=== PATIENT | female | born 1945 | race Caucasian/White ===

== ENCOUNTER → 2016-11-03 | Outpatient (CLI) | payer MEDICARE, BC | END | disposition home or self-care (01) | LOC: PCVCCLINIC 14:28 | PROVIDERS: ATTEND Internal Medicine | DX: R94.31 Abnormal electrocardiogram [ECG] [EKG] (principal); I10 Essential (primary) hypertension; E78.5 Hyperlipidemia, unspecified; J44.9 Chronic obstructive pulmonary disease, unspecified; F17.200 Nicotine dependence, unspecified, uncomplicated; Z82.49 Family history of ischemic heart disease and other diseases of the circulatory system | CPT/HCPCS: 80061; 93005; G0463 ==

== ENCOUNTER → 2017-05-17 | Outpatient (CLI) | payer MEDICARE, BC | END | disposition home or self-care (01) | LOC: PCVCCLINIC 13:12 | PROVIDERS: ATTEND Internal Medicine | DX: I10 Essential (primary) hypertension (principal); R94.31 Abnormal electrocardiogram [ECG] [EKG]; E78.5 Hyperlipidemia, unspecified; J43.2 Centrilobular emphysema; E03.9 Hypothyroidism, unspecified; Z82.49 Family history of ischemic heart disease and other diseases of the circulatory system; Z87.891 Personal history of nicotine dependence; Z88.8 Allergy status to other drugs, medicaments and biological substances | CPT/HCPCS: 80061; G0463 ==

== ENCOUNTER → 2017-05-29 | Outpatient (CLI) | payer MEDICARE, BC ==
--- NOTE | 2017-05-29 09:29 | PCVCIMAG ---
APPROVED REPORT Study performed: 05/29/2017 07:59:59 EXAM: Comprehensive 2D, Doppler, and color-flow Echocardiogram Patient Location: Echo lab Status: routine BSA: 1.81 HR: 54 bpmBP: 122/72 mmHg Rhythm: Bradycardia Other Information Study Quality: Good Risk Factors: Cardiac Risk Factors: HTN Indications Abnormal ECG Chest Pain 2D Dimensions LVEF(%): 56.03 (>50%) IVSd: 11.35 (7-11mm) LVDd: 41.72 mm PWd: 11.30 (7-11mm) LVDs: 29.65 (25-40mm) Left Atrium: 41.70 (27-40mm) Aortic Root: 32.14 mm LV Single Plane 4CH: 68.05 % LV Single Plane 2CH: 69.15 %Bridges's LVEF: 68.60 % Biplane EF: 69.8 % Volumes Left Atrial Volume (Systole) Single Plane 4CH: 82.57 mLSingle Plane 2CH: 70.23 mL LA ESV Index: 42.00 mL/m2 Aortic Valve AoV Peak [place].: 1.46 m/s AO Peak Gr.: 8.53 mmHgLVOT Max P.82 mmHg LVOT Max V: 1.21 m/s AI Vmax: 5.40 m/s AI Mcmullen: 2.36 m/s2 AI PHT: 662.50 ms Mitral Valve E/A Ratio: 1.4 MV Decel. Time: 223.01 ms MV E Max Parish.: 0.63 m/s MV A Parish.: 0.46 m/s IVRT: 152.25 ms Pulmonary Valve PV Peak Parish.: 1.04 m/sPV Peak Gr.: 4.29 mmHg Pulmonary Vein P Vein S: 0.35 m/sP Vein A: 0.28 m/s P Vein D: 0.58 m/sP Vein A Dur.: 145.3 msec P Vein S/D Ratio: 0.60 Tricuspid Valve TR Peak Parish.: 2.38 m/s TR Peak Gr.: 22.57 mmHg Left Ventricle The left ventricle is normal size. There is normal LV segmental wall motion. There is normal left ventricular wall thickness. Left ventricular systolic function is normal. The left ventricular ejection fraction is within the normal range. LVEF is 65%. Grade II - pseudonormal filling dynamics. Right Ventricle The right ventricle is normal size. The right ventricular systolic function is normal. Atria Left atrium is mildly dilated. The right atrium size is normal. Aortic Valve The aortic valve is trileaflet, mildly sclerotic Mild aortic regurgitation. There is no aortic valvular stenosis. Mitral Valve The mitral valve is normal in structure. Mild mitral regurgitation. No evidence of mitral valve stenosis. Tricuspid Valve The tricuspid valve is normal in structure. Trace tricuspid regurgitation with PAP of 30 mmHg. Pulmonic Valve The pulmonary valve is normal in structure. Trace pulmonic regurgitation. Great Vessels The aortic root is normal in size. IVC is normal in size and collapses with >50% inspiration Pericardium There is no pericardial effusion. <Conclusion> Left ventricular systolic function is normal. There is normal LV segmental wall motion. LVEF is 65%. Grade II - pseudonormal filling dynamics. Left atrium is mildly dilated. The aortic valve is trileaflet, mildly sclerotic. Mild aortic regurgitation, no stenosis. The mitral valve is normal in structure. Mild mitral regurgitation. There is no pericardial effusion.
--- NOTE | 2017-05-29 12:42 | PCVCIMAG ---
APPROVED REPORT Exam: Nuclear Stress Test Indication: Chest Pain, Abn EKG Patient Location: Out Patient Stress Nurse: Farncoise Day RN, Sera Gonzalez RN [place] Tech:Esteban Gonzalez NMTCB Ht: 5 ft 2 in Wt: 171 lbs BSA: 1.79 m2 HR: 59 bpm BP: 178/74 mmHg BMI: 31.2 Rhythm: NSR Medical History Medical History: Age, HTN, Former Smoker, Abn EKG Medications: Atenolol (held 24 hours) Buspar, Fish Oil Allergies: Diltiazem, Nortriptylline, Butalbitol Pretest Chest Pain Characteristics: No chest pain Exercise History: Sedentary NM EXAM: Myocardial Perfusion REST/STRESS Imaging Protocol: Rest Tc-99m/Stress Tc-99m 1 day Resting Data Rest SPECT myocardial perfusion imaging was performed in supine position 45 minutes following the intravenous injection of 11.6 mCi of Tc-99m Sestamibi. Time of rest injection: 914 Date: 05/29/2017 Pharmacologic Stress Pharmacologic stress test was performed by injecting Regadenoson 0.4 mg IV push followed by the intravenous injection of 35.5 mCi of Tc-99m Sestamibi. Time of stress injection: 0 Date: 05/29/2017 The images were gated to evaluate regional wall motion and calculate left ventricular ejection fraction. Study Quality Study: Good Study Data Post stress, the left ventricular ejection was 75%.. SSS: 2 SRS: 1 SDS: 1 TID = 0.96. Perfusion No evidence of stress induced ischemia or prior myocardial infarction. Wall Motion Normal left ventricular size and function with no regional wall motion abnormalities. Nuclear Conclusion No evidence of stress induced ischemia or prior myocardial infarction. Normal left ventricular size and function with no regional wall motion abnormalities. Post stress, the left ventricular ejection was 75%.. No prior study available for comparison. Interpreted by: James Kam MD Electronically Approved: 05/29/2017 12:08:35 Stress Test Details Stress Test: Pharmacologic stress was paired with low level exercise. HR Resting HR: 59 bpmMax Heart Rate (APMHR): 149 bpm Max HR Achieved: 94 bpmTarget HR (85% APMHR): 126 bpm % of APMHR: 63 Recovery HR: 68 bpm BP Resting BP: 178/74 mmHg Max BP: 152/74 mmHg ECG Resting ECG: Sinus Rhythm with nonspecific ST and T wave changes Stress ECG: Sinus Rhythm Maximum ST Deviation: 0 mm Arrhythmia: VPC's Recovery ECG: Sinus Rhythm Recovery ST Change: , Normal Recovery ST Deviation: 0 mm Recovery Arrhythmia: VPC Clinical Reason for Termination: Completed protocol Stress Symptoms: Dyspnea Exercise duration: 4 min 0 sec Exercise capacity: 1.6 METs Symptoms resolved during recovery. Stress ECG Conclusion ECG: Non-ischemic Clinical: Non-ischemic <Conclusion> ECG: Non-ischemic Clinical: Non-ischemic
== END | disposition home or self-care (01) ==
LOC: PCVCIMAG 08:30
PROVIDERS: ATTEND Internal Medicine
DX: I08.3 Combined rheumatic disorders of mitral, aortic and tricuspid valves (principal); I10 Essential (primary) hypertension; R94.31 Abnormal electrocardiogram [ECG] [EKG]; E78.5 Hyperlipidemia, unspecified; J43.9 Emphysema, unspecified; K52.9 Noninfective gastroenteritis and colitis, unspecified; Z87.891 Personal history of nicotine dependence
CPT/HCPCS: 78452; 93017; 93306; A9500

== ENCOUNTER → 2017-11-19 | Outpatient (CLI) | payer MEDICARE, BC | END | disposition home or self-care (01) | LOC: PCVCCLINIC 13:26 | DX: I10 Essential (primary) hypertension (principal); J43.2 Centrilobular emphysema; E78.5 Hyperlipidemia, unspecified; R94.31 Abnormal electrocardiogram [ECG] [EKG]; Z87.891 Personal history of nicotine dependence; Z79.899 Other long term (current) drug therapy | CPT/HCPCS: 80061; 93005; G0463 ==

== ENCOUNTER → 2018-07-10 | Outpatient (CLI) | payer MEDICARE, BC | END | disposition home or self-care (01) | LOC: PCVCCLINIC 15:35 | PROVIDERS: ATTEND Internal Medicine | DX: I11.0 Hypertensive heart disease with heart failure (principal); I50.32 Chronic diastolic (congestive) heart failure; J43.2 Centrilobular emphysema; R94.31 Abnormal electrocardiogram [ECG] [EKG]; E78.5 Hyperlipidemia, unspecified; R07.9 Chest pain, unspecified; Z88.8 Allergy status to other drugs, medicaments and biological substances; Z87.891 Personal history of nicotine dependence; Z79.82 Long term (current) use of aspirin; Z79.899 Other long term (current) drug therapy | CPT/HCPCS: 80061; 93005; G0463 ==

== ENCOUNTER → 2019-01-09 | Outpatient (CLI) | payer MEDICARE, BC | END | disposition home or self-care (01) | LOC: PCVCCLINIC 15:00 | PROVIDERS: ATTEND Internal Medicine Cardiovascular Disease | DX: R94.31 Abnormal electrocardiogram [ECG] [EKG] (principal); I11.0 Hypertensive heart disease with heart failure; I50.32 Chronic diastolic (congestive) heart failure; E78.5 Hyperlipidemia, unspecified; J43.2 Centrilobular emphysema; Z87.891 Personal history of nicotine dependence; Z79.82 Long term (current) use of aspirin; Z88.8 Allergy status to other drugs, medicaments and biological substances | CPT/HCPCS: 36415; 80061; 93005; G0463 ==

== ENCOUNTER → 2019-07-17 | Outpatient (CLI) | payer MEDICARE, BC ==
--- NOTE | 2019-07-17 15:50 | PCVCIMAG ---
APPROVED REPORT Study performed: 07/17/2019 14:00:50 EXAM: Comprehensive 2D, Doppler, and color-flow Echocardiogram Patient Location: Echo lab Status: routine BSA: 1.78 HR: 52 bpmBP: 130/80 mmHg Rhythm: NSR Other Information Study Quality: Good Indications Abnormal ECG Abnormal EKG, Emphysema 2D Dimensions IVSd: 13.28 (7-11mm)LVOT Diam: 17.56 (18-24mm) LVDd: 35.64 mm PWd: 11.83 (7-11mm)Ascending Ao: 34.09 (22-36mm) LVDs: 24.75 (25-40mm) Left Atrium: 47.01 (27-40mm) LV Single Plane 4CH: 56.63 % LV Single Plane 2CH: 65.04 % Biplane EF: 61.2 % Volumes Left Atrial Volume (Systole) Single Plane 4CH: 43.28 mLSingle Plane 2CH: 38.94 mL LA ESV Index: 24.00 mL/m2 Aortic Valve AoV Peak Parish.: 1.47 m/s AO Peak Gr.: 8.63 mmHgLVOT Max P.46 mmHg LVOT Max V: 1.17 m/s FAREED Vmax: 1.93 cm2 Mitral Valve E/A Ratio: 0.7 MV Decel. Time: 257.77 ms MV E Max Parish.: 0.51 m/s MV A Parish.: 0.77 m/s TDI E/Lateral E': 7.29E/Medial E': 8.50 Medial E' Parish.: 0.06 m/s Lateral E' Parish.: 0.07 m/s Pulmonary Valve PV Peak Gr.: 4.41 mmHg Pulmonary Vein P Vein S: 0.38 m/sP Vein A: 0.50 m/s P Vein D: 0.31 m/sP Vein A Dur.: 128.0 msec P Vein S/D Ratio: 1.23 Left Ventricle The left ventricle is normal size. There is normal LV segmental wall motion. There is normal left ventricular wall thickness. Left ventricular systolic function is normal. The left ventricular ejection fraction is within the normal range. LVEF is 60-65%. Mild diastolic dysfunction is present (impaired relaxation pattern). Right Ventricle The right ventricle is normal size. The right ventricular systolic function is normal. Atria The left atrium size is normal. The right atrium size is normal. Aortic Valve The aortic valve is minimally sclerotic Trace aortic regurgitation. There is no aortic valvular stenosis. Mitral Valve The mitral valve is normal in structure. Trace mitral regurgitation. No evidence of mitral valve stenosis. Tricuspid Valve The tricuspid valve is normal in structure. There is no tricuspid valve regurgitation noted. Pulmonic Valve The pulmonary valve is normal in structure. There is no pulmonic valvular regurgitation. Great Vessels The aortic root is normal in size. IVC is normal in size and collapses >50% with inspiration. Pericardium There is no pericardial effusion. <Conclusion> Left ventricular systolic function is normal. There is normal LV segmental wall motion. LVEF is 60-65%. Mild diastolic dysfunction The aortic valve is minimally sclerotic. Trace aortic regurgitation. The mitral valve is normal in structure. Trace mitral regurgitation. Pulmonary artery systolic pressure could not be reliably ascertained There is no pericardial effusion.
== END | disposition home or self-care (01) ==
LOC: PCVCIMAG 13:42
PROVIDERS: ATTEND Internal Medicine
DX: J43.2 Centrilobular emphysema (principal); R94.31 Abnormal electrocardiogram [ECG] [EKG]; I11.0 Hypertensive heart disease with heart failure; I50.32 Chronic diastolic (congestive) heart failure; E78.5 Hyperlipidemia, unspecified; E78.00 Pure hypercholesterolemia, unspecified; I35.8 Other nonrheumatic aortic valve disorders; E03.9 Hypothyroidism, unspecified; Z79.82 Long term (current) use of aspirin; Z79.899 Other long term (current) drug therapy; Z87.891 Personal history of nicotine dependence
CPT/HCPCS: 36415; 80061; 93005; 93306; G0463